=== PATIENT | female | born 1940 | race Caucasian/White ===

== ENCOUNTER 2025-04-25 06:35 | Day surgery (SDC) | payer MEDICARE, BC ==
[~2025-04-25] VITALS: Ht 170.2 cm; Wt 85.1 kg
[2025-04-25] VITALS (10 sets, daily range): BP systolic 106–149; BP diastolic 56–83; PULSE 67–87; RESP 11–18; TEMP 99.5; O2SAT 94–98
[~2025-04-25 06:35] MED LIST: BACL10TA PO; CHOL10002 PO; FLEC100T2 PO; HYDR-4383 PO; LOP25T PO; PRAM0.5T3 PO; RIVA20TA PO; [UNRECOGNIZED DRUG - CODE] PO
[2025-04-25] MEDS ORDERED: normal saline 1000ml 1,000 ML IV PRN (07:10)
--- NOTE | 2025-04-25 07:29 | ELECTROCARDIOGRAPH REPORT ---
[facility] Test Date: 2025-04-25 Test Time: 07:28:23 Pat Name: LIZZIE JACINTO Department: [facility] Patient ID: [facility]-[id number] Room: Gender: F Learning And Development Consultant: ITALO : 1940 Requested By: WOLF COYLE Order Number: [id number] Reading MD: Dr. Richard Mckeon Measurements Intervals [place] Rate: 67 P: 13 [place]: 235 QRS: -1 QRSD: 94 T: 39 QT: 427 QTc: 451 Interpretive Statements Sinus rhythm Prolonged OK interval Low voltage, extremity leads Electronically Signed On 04-25-2025 8:10:[address] Richard Mckeon Please click the below link to view image of tracing.
[2025-04-25 07:39] LABS: MEAN PLATELET VOLUME 8.2 FL (7.4-10.4); RED CELL DISTRIBUTION WIDTH 15.4 % (11.5-14.5)
[2025-04-25 07:47] LABS: CREATININE 0.88 MG/DL (0.40-0.90); TOTAL CARBON DIOXIDE 27.5 MMOL/L (24-32); eCRCL 46 ML/MIN; eGFR 61 ML/MIN
[2025-04-25 07:48] LABS: INR 1.0 INR
[2025-04-25] MEDS ORDERED: CHOL-4 PO (08:24)
[2025-04-25] MEDS ORDERED: PRAM1TAB6 PO (08:24)
[2025-04-25] MEDS ORDERED: ACET-812 PO (08:24)
[2025-04-25] MEDS ORDERED: LOSA25TA41 PO (08:24)
[2025-04-25] MEDS ORDERED: SERT-434 PO (08:24)
[2025-04-25] MEDS ORDERED: PRAV40TA17 PO (08:24)
[2025-04-25] MEDS ORDERED: HYDR12.55 PO (08:24)
[2025-04-25] MEDS ORDERED: LIDOcaine 1% W/epiNEPHrine 1:100,000 20ml vial ONE (08:39)
[2025-04-25] MEDS ORDERED: midazolam 1 mg/ML 2ml injection ONE ×2 (08:40→09:50)
[2025-04-25] MEDS ORDERED: fentaNYL/PF 50MCG/1 ML 2ML syringe ONE (08:40)
[2025-04-25] MEDS: normal saline 1000ml 1,000 ML IV PRN (08:40)
[2025-04-25] MEDS ORDERED: iohexol 350 MG/ML 50ML vial IV ONE (08:40)
[2025-04-25] MEDS ORDERED: vancomycin 1,000mg inj ONE (08:40)
[2025-04-25] MEDS: VANCOMYCIN/H2O 1.5g/300mL PB 300 ML IV ONE (08:40)
[2025-04-25] MEDS ORDERED: normal saline 1000ml 1,000 ML IV SCH (11:30)
[2025-04-25] MEDS: ceFAZolin 2,000MG in D5W 50mL IV ONE (11:42)
--- NOTE | 2025-04-25 12:21 | RADIOLOGY REPORT ---
EXAM: DI CHEST,SINGLE VIEW Indication: s/p pacemaker Technique: Single frontal view of the chest was obtained Comparison: None FINDINGS: Lines and Tubes: Cardiac pacemaker projects over left chest wall. Lungs: No focal consolidation. Pleura: No effusion. No pneumothorax. Cardiomediastinal contours: Unremarkable. Atherosclerotic vascular calcifications of the thoracic ao rta are noted. Bones: No acute osseous abnormality. IMPRESSION: No acute cardiopulmonary disease.
[2025-04-25] MEDS ORDERED: ceFAZolin 2,000MG in D5W 50mL IV ONE (12:30)
--- NOTE | 2025-04-25 13:20 | CARDIOLOGY REPORT ---
DATE OF SERVICE: 04/25/2025 DICTATING PHYSICIAN: WOLF COYLE DO CARDIAC CATHETERIZATION REPORT REFERRING PHYSICIAN: Sally Whiteside MD PROCEDURES PERFORMED: Implantation of permanent dual chamber pacemaker with endocardial electrodes. PREOPERATIVE DIAGNOSES: * Paroxysmal atrial fibrillation. * Very frequent PVCs. * Sick sinus syndrome. POSTOPERATIVE DIAGNOSES: * Paroxysmal atrial fibrillation. * Very frequent PVCs. * Sick sinus syndrome. CLINICAL HISTORY: This 85-year-old woman has paroxysmal atrial fibrillation, but she also has extremely frequent PVCs. She has been treated with metoprolol to suppress PVCs, which has been effective; however, she becomes markedly bradycardic on even low-dose metoprolol with heart rates into the 30s. She has been hospitalized once because of bradycardia associated with fatigue and weakness. In order to satisfactorily treat her arrhythmias, a decision was made to proceed to permanent pacemaker placement. ANESTHESIA: Conscious sedation with local to skin. DEVICES IMPLANTED: Biotronik RV lead model #659421 and serial #[id number]; Biotronik atrial electrode model #671859 and serial #[id number]; Biotronik pulse generator model #249166 and serial #[id number]. DESCRIPTION OF PROCEDURE: The patient was sedated with fentanyl and Versed. She was then prepared and draped in the usual manner. The left pectoral area was liberally infiltrated with 1% lidocaine containing a 1:100,000 mixture of epinephrine. Using a micropuncture set under Seldinger technique, a small guidewire was placed in the left subclavian vein. Next, a 5 cm incision was made directly adjacent to the guidewire and a subcutaneous pocket was created using electrocautery and blunt dissection. The guidewire was pulled into the pocket and using a micropuncture size-up sheath, a 6-Wolof dilator and sheath assembly was placed in the central venous circulation. Using this sheath, the right ventricular electrode was prolapsed across the tricuspid valve and then placed on the low interventricular septum. The screw was extended. The stylet was withdrawn. Sensing and pacing evaluation demonstrated an R-wave amplitude of 5 millivolts and impedance of 600 ohms and a threshold for capture of 0.6 volts. A second 6-Wolof sheath assembly was also placed in the central venous circulation. After removal of the guidewire and dilator, the right atrial electrode was passed into the mid right atrium and using a J-shaped stylet, it was positioned in the right atrial appendage. The screw was extended. The stylet was withdrawn and sensing and pacing evaluation demonstrated a P-wave amplitude of 2 millivolts and impedance of 500 ohms and a threshold for capture of 0.5 volts. Sheaths were removed while ensuring stability of the electrodes and fluoroscopic observation. A 3-0 Vicryl suture was placed around the electrodes at their exit point from the pectoral fascia. The electrodes were further secured to the pectoral fascia using 2-0 Ethibond sutures around the suturing sleeve. The generator was attached to the electrodes and together they were placed in the pocket. The pocket was irrigated with a vancomycin antibiotic solution. The subcutaneous layer was closed with 3-0 Vicryl and the skin was approximated with 4-0 Monocryl. ESTIMATED BLOOD LOSS: 10 mL. COMPLICATIONS: No complications. PLAN: Initial Satinder parameters were as follows: Mode DDD LRL 60 ppm, upper tracking rate was 130 ppm. Both electrodes were set at 3.5 volts output and 0.4 milliseconds. A chest x-ray was pending at the time of this dictation. WOLF COYLE DO TID: [id number] RECEIPT: [id number] VIN MCBRIDE
[2025-04-25] MEDS ORDERED: sod chloride 0.9% 10ml flush syringe IV SCH (16:00)
== END 2025-04-25 13:35 | disposition home or self-care (01) ==
LOC: SSTAY O 06:35
PROVIDERS: ATTEND Internal Medicine Cardiovascular Disease
DX: I49.5 Sick sinus syndrome (principal); I48.0 Paroxysmal atrial fibrillation; I49.3 Ventricular premature depolarization; R94.31 Abnormal electrocardiogram [ECG] [EKG]; I10 Essential (primary) hypertension; I25.10 Atherosclerotic heart disease of native coronary artery without angina pectoris; E78.5 Hyperlipidemia, unspecified; F32.A Depression, unspecified; M19.90 Unspecified osteoarthritis, unspecified site; Z79.01 Long term (current) use of anticoagulants; Z79.899 Other long term (current) drug therapy; Z98.890 Other specified postprocedural states; Z82.49 Family history of ischemic heart disease and other diseases of the circulatory system
CPT/HCPCS: 33208; 36415; 71045; 80048; 83735; 85025; 85610; 93005; 99152; 99153; A4565; C1898; J0690; J1171; J2250; J3010; J3373; J3375; J3490; J7030; Q9967; C1785

== ENCOUNTER 2025-07-04 08:25 | Day surgery (SDC) | payer MEDICARE, BC ==
[2025-07-04] VITALS (8 sets, daily range): BP systolic 134–173; BP diastolic 63–89; PULSE 60–62; RESP 11–15; TEMP 98; O2SAT 94–99
[~2025-07-04] VITALS: Ht 172.7 cm; Wt 85.6 kg
[~2025-07-04 08:25] MED LIST changes: +ACET-812 PO; -BACL10TA PO; +CHOL-4 PO; -CHOL10002 PO; -HYDR-4383 PO; +HYDR12.55 PO; +LOSA25TA41 PO; -PRAM0.5T3 PO; +PRAM1TAB6 PO; +PRAV40TA17 PO; +SERT-434 PO; -[UNRECOGNIZED DRUG - CODE] PO
--- NOTE | 2025-07-04 08:58 | ELECTROCARDIOGRAPH REPORT ---
[facility] Test Date: 2025-07-04 Test Time: 08:55:14 Pat Name: LIZZIE JACINTO Department: [facility] Patient ID: [facility]-[id number] Room: Gender: F Track Layer: [place] : 1940 Requested By: WOLF COYLE Order Number: [id number] Reading MD: Dr. JYOTI Ocampo Measurements Intervals [place] Rate: 60 P: 127 [place]: 225 QRS: -1 QRSD: 102 T: 62 QT: 451 QTc: 451 Interpretive Statements A-V dual-paced rhythm with some inhibition No further analysis attempted due to paced rhythm Electronically Signed On 07-04-2025 17:11:[address] JYOTI Ocampo Please click the below link to view image of tracing.
[2025-07-04 10:02] LABS: MEAN PLATELET VOLUME 8.3 FL (7.4-10.4); RED CELL DISTRIBUTION WIDTH 14.4 % (11.5-14.5)
[2025-07-04 10:15] LABS: INR 1.0 INR
[2025-07-04 10:16] LABS: CREATININE 0.87 MG/DL (0.40-0.90); TOTAL CARBON DIOXIDE 28.9 MMOL/L (24-32); eCRCL 49 ML/MIN; eGFR 62 ML/MIN
[2025-07-04] MEDS: normal saline 1000ml 1,000 ML IV SCH (10:30)
[2025-07-04] MEDS ORDERED: fentaNYL/PF 50MCG/1 ML 2ML syringe ONE ×2 (12:16→13:09)
[2025-07-04] MEDS ORDERED: LIDOcaine 1% W/epiNEPHrine 1:100,000 20ml vial ONE (12:16)
[2025-07-04] MEDS ORDERED: midazolam 1 mg/ML 2ml injection ONE ×3 (12:16→13:08)
[2025-07-04] MEDS ORDERED: vancomycin 1,000mg inj ONE (12:16)
[2025-07-04] MEDS ORDERED: normal saline 500ml IV soln 400 ML IV SCH (14:00)
--- NOTE | 2025-07-04 17:51 | CARDIOLOGY REPORT ---
DATE OF SERVICE: 07/04/2025 DICTATING PHYSICIAN: WOLF COYLE DO CARDIAC CATHETERIZATION REPORT PROCEDURES PERFORMED: 1. Pacemaker pocket revision. 2. Pacemaker leads revision. CLINICAL HISTORY: This 85-year-old woman received a dual chamber pacemaker for sick sinus syndrome on 04/25/2025. Recent interrogation of the device demonstrated an impedance greater than 2000 ohms on both electrodes but normal sensing and capture in both bipolar and unipolar configurations. There was also a consistent artifact with manipulation of the pacemaker in the pocket. On the presumption that there was something wrong with the electrodes, a decision was made to return the patient to reopen the pocket and examine connections and the general integrity of the device. ANESTHESIA: Conscious sedation with local to skin. EXISTING DEVICES: Biotronik RV electrode model number, the type was a Solia S53 and serial number [id number]; Biotronk atrial electrode model is Solia S45 and serial number [id number]; Biotronk pulse generator model number Amvia DR and serial number [id number]. DESCRIPTION OF PROCEDURE: The patient was sedated with fentanyl and Versed. She was then prepared and draped in the usual manner. The left pectoral region was very liberally infiltrated with 1% lidocaine containing a 1:100,000 mixture of epinephrine. The pocket was then opened by incising along the existing scar line. The pacemaker was easily exposed. It was then easily withdrawn from the pocket. Manipulation of the device before disconnection of the electrodes did not result in artifact. Nevertheless, the electrodes were disconnected and were individually tested and found to be functioning completely normally in both bipolar and unipolar modes. The insertion sites on the pulse generator were flushed with saline. The electrodes were then returned to their respective locations in the pacemaker header and secured. The examination of the header demonstrated that the tips of the electrodes were fully inserted. It was then returned to the pocket. Retesting of the entire device when in the pocket revealed no evidence for high impedance in the bipolar mode and function was entirely normal. The pacemaker pocket was then irrigated with a vancomycin antibiotic solution. The subcutaneous layer was closed with 3-0 Vicryl and the skin was approximated with 4-0 Monocryl. ESTIMATED BLOOD LOSS: Essentially nil. The same device settings were maintained. COMPLICATIONS: No complications. WOLF COYLE DO TID: [id number] RECEIPT: [id number] PETER/BECKIE MCBRIDE
== END 2025-07-04 15:45 | disposition home or self-care (01) ==
LOC: SSTAY O 08:25
PROVIDERS: ATTEND Internal Medicine Cardiovascular Disease
DX: Z45.018 Encounter for adjustment and management of other part of cardiac pacemaker (principal); T82.110A Breakdown (mechanical) of cardiac electrode, initial encounter; I48.0 Paroxysmal atrial fibrillation; I49.5 Sick sinus syndrome; I10 Essential (primary) hypertension; I25.10 Atherosclerotic heart disease of native coronary artery without angina pectoris; E78.5 Hyperlipidemia, unspecified; F32.A Depression, unspecified; M19.90 Unspecified osteoarthritis, unspecified site; Z79.899 Other long term (current) drug therapy; Z98.890 Other specified postprocedural states
CPT/HCPCS: 33215; 36415; 80048; 83735; 85025; 85610; 93005; 99152; 99153; A4565; J0690; J2250; J3010; J3373; J3490; J7030; 33220